=== PATIENT | male | born 1965 | race African-American/Black ===

== ENCOUNTER 2020-11-28 18:20 | Emergency (ER) | payer OTHER ==
[~2020-11-28] VITALS: Ht 180.3 cm; Wt 136.1 kg
--- NOTE | 2020-11-28 18:49 | NUR ---
BIBS FOR C/O LOWER BACK PAIN S/P FALL WHILE TRYING TO SIT LAST FRIDAY. RATES PAIN 10/10. RESPIRATION REGULAR AND UNLABORED. WILL CONTINUE TO MONITOR THE PATIENT.
[2020-11-28] MEDS ORDERED: MORPHINE SULFATE INJ 4 MG/ML DISP.SYRIN IM ONE (19:30)
[2020-11-28] MEDS ORDERED: MORPHINE SULFATE INJ 4 MG/ML DISP.SYRIN ONE (19:32)
--- NOTE | 2020-11-28 19:44 | NUR ---
tech at bedside for eval
[2020-11-28] MEDS ORDERED: OXYC-128 PO (20:57)
[2020-11-28] MEDS ORDERED: NAPR500T6 PO (20:57)
--- NOTE | 2020-11-28 21:18 | NUR ---
Patient discharged to home in stable condition. Written and verbal after care instructions given. Patient verbalizes understanding of instruction.
[2020-11-28 21:19] VITALS: BP 138/91
== END 2020-11-28 21:22 | disposition home or self-care (01) ==
LOC: ER 18:20
DX: G89.11 Acute pain due to trauma (principal); M54.5 Low back pain; M47.817 Spondylosis without myelopathy or radiculopathy, lumbosacral region; E11.9 Type 2 diabetes mellitus without complications; E66.01 Morbid (severe) obesity due to excess calories; Z68.41 Body mass index [BMI] 40.0-44.9, adult; I10 Essential (primary) hypertension; Z79.899 Other long term (current) drug therapy
CPT/HCPCS: 72100; 72170; 96372; 99284; J2270